=== PATIENT | female | born 1985 | race American Indian/Alaskan Native ===

== ENCOUNTER 2016-10-26 16:04 | Emergency (ER) | payer MEDICAID ==
--- NOTE | 2016-10-26 16:15 | Emergency Department Report ---
Stated Complaint: FALL INJURED R FOOT Time Seen by Provider: 10/26/16 16:13 - HPI History of Present Illness: PT c/o pain to R foot sp fall. - ROS Review of Systems: - head injury - loc - Exam Physical Exam: + edema noted to R lateral foot MSE screening note: Focused history and physical exam performed. Due to findings the following was ordered: xr ED Disposition for MSE Condition: Stable
[2016-10-26 16:17] VITALS: BP 104/63
--- NOTE | 2016-10-26 17:13 | XRay Report ---
RIGHT FOOT, 3 views: History: Right foot pain after fall. The bony architecture is intact. Bony alignment is normal. No soft tissue abnormalities are seen. The joint spaces appear preserved. IMPRESSION: Normal right foot.
--- NOTE | 2016-10-26 18:00 | Emergency Department Report ---
Entered by MANJINDER CARSON, acting as scribe for ROMY WILLIAMSON NP. ED Lower Extremity HPI - General Chief Complaint: Extremity Injury, Lower Stated Complaint: FALL INJURED R FOOT Time Seen by Provider: 10/26/16 16:13 Source: patient Mode of arrival: Wheelchair Limitations: No Limitations - History of Present Illness Initial Comments: 30 year old female with no significant PMHx presents to ED with c/o right foot pain since last night. Patient states it was a ground level fall while walking in the front yard when she fell in a ditch and twisted her right ankle. Patient reports swelling when she woke up this morning. Patient states she was non ambulatory and used a wheelchair in the ED. Patient denies LOC, head trauma/ injury, dizziness, nausea, vomiting, numbness, or tingling. NKDA. PRADO Complaint: foot injury -: Last night Injury: Foot: Right Place: street/outdoors Severity: moderate Improves With: nothing Worsens With: weight bearing, movement Context: fall Associated Symptoms: swelling, unable to bear weight. denies: snap/pop sensation, numbness, tingling, ambulatory (arrived in wheelchair) - Related Data Previous Rx's Medication Instructions Recorded Last Taken Type Ibuprofen [Motrin 800 MG tab] 800 mg PO Q8HR PRN #30 tablet 10/26/16 Unknown Rx ED Review of Systems Constitutional: denies: chills, fever, weakness Respiratory: denies: cough, shortness of breath, wheezing Cardiovascular: denies: chest pain, palpitations Gastrointestinal: denies: abdominal pain, nausea, vomiting, diarrhea Musculoskeletal: denies: back pain, joint swelling, arthralgia Skin: denies: rash, lesions Neurological: denies: headache, weakness, paresthesias ED Past Medical Hx - Past Medical History Previous Medical History?: No - Surgical History Past Surgical History?: Yes Additional Surgical History: LOWER ABD MASS REMOVED - Social History Smoking Status: Current Every Day Smoker Substance Use Type: None - Medications Home Medications: Home Medications Medication Instructions Recorded Confirmed Last Taken Type Ibuprofen [Motrin 800 MG tab] 800 mg PO Q8HR PRN #30 tablet 10/26/16 Unknown Rx ED Physical Exam - General Limitations: No Limitations General appearance: alert, in no apparent distress - Head Head exam: Present: atraumatic, normocephalic - Neck Neck exam: Present: normal inspection, full ROM. Absent: tenderness, meningismus - Respiratory Respiratory exam: Present: normal lung sounds bilaterally. Absent: respiratory distress, wheezes, rales, rhonchi, stridor - Cardiovascular Cardiovascular Exam: Present: regular rate, normal rhythm, normal heart sounds ( normal). Absent: systolic murmur, diastolic murmur, rubs, gallop - GI/Abdominal GI/Abdominal exam: Present: soft, normal bowel sounds. Absent: distended, tenderness, guarding, rebound, rigid, diminished bowel sounds - Extremities Exam Extremities exam: Present: tenderness, pedal edema - Expanded Lower Extremity Exam Right Hip exam: Present: pelvic stability Knee exam: Present: normal inspection, full ROM Lower Leg exam: Present: normal inspection, full ROM Ankle exam: Present: normal inspection, full ROM Foot/Toe exam: Present: tenderness (TTP to radial and dorsal ankle ), swelling ( Edema to radial and dorsal ankle ). Absent: abrasion, laceration, ecchymosis, deformity, crepidus, dislocation, erythema, amputation, puncture wound, foreign body, calcaneal tenderness, tenderness at base of 5th metatarsal, nail avulsion , subungual hematoma Neuro vascular tendon exam: Present: no vascular compromise (DP 2+ PT 2+). Absent: pulse deficit, abnormal cap refill, motor deficit, sensory deficit, tendon deficit, extremity cold to touch, pallor, abnormal 2-point discrimination , decreased fine/light touch, foot drop, peroneal nerve deficit, significant pain with passive ROM of distal joint Gait: Positive: unable to bear weight (to right foot) - Back Exam Back exam: Present: normal inspection, full ROM. Absent: tenderness, paraspinal tenderness, vertebral tenderness - Neurological Exam Neurological exam: Present: alert, oriented X3, CN II-XII intact, reflexes normal. Absent: motor sensory deficit - Psychiatric Psychiatric exam: Present: normal affect, normal mood - Skin Skin exam: Present: warm, dry, intact, normal color. Absent: rash ED Course Vital Signs 10/26/16 16:14 Temperature 98.3 F Pulse Rate 87 Respiratory 18 Rate Blood Pressure 104/63 O2 Sat by Pulse 98 Oximetry ED Lower Extremity MDM - Lab Data Vital Signs 10/26/16 16:14 Temperature 98.3 F Pulse Rate 87 Respiratory 18 Rate Blood Pressure 104/63 O2 Sat by Pulse 98 Oximetry - Radiology Data Radiology results: image reviewed RIGHT FOOT, 3 views: History: Right foot pain after fall. The bony architecture is intact. Bony alignment is normal. No soft tissue abnormalities are seen. The joint spaces appear preserved. IMPRESSION: Normal right foot. - Medical Decision Making During the course of ED, radiology study was ordered. The study revealed normal right foot. Patient was placed in a post-op shoe, sent home with prescription for Ibuprofen and crutches, instructed to follow up with the selective referral given discharge, she verbalized understanding - Differential Diagnosis Right Foot Pain, Right Foot Fracture ED Disposition Clinical Impression: Right foot pain Disposition: DC-01 TO HOME OR SELFCARE Is pt being admited?: No Does the pt Need Aspirin: No Condition: Stable Instructions: Arthralgia (ED) Additional Instructions: Take medication as directed. Wear post-op shoe for comfort. Follow up with the selective referral given at discharge. Prescriptions: Ibuprofen [Motrin 800 MG tab] 800 mg PO Q8HR PRN #30 tablet PRN Reason: Pain Referrals: PRIMARY CAREMD [Primary Care Provider] - 3-5 Days KEVIN PAREDES MD [Staff Physician] - 3-5 Days Time of Disposition: 17:59 This documentation as recorded by the YAMILETH florentino PEARL,accurately reflects the service I personally performed and the decisions made by CLAY lemus SABRENA D, PLANNING SPECIALIST.
== END 2016-10-26 18:05 | disposition home or self-care (01) ==
LOC: ED 16:04
DX: M79.671 Pain in right foot (principal); F17.200 Nicotine dependence, unspecified, uncomplicated; W18.30XA Fall on same level, unspecified, initial encounter; Y93.89 Activity, other specified; Y99.9 Unspecified external cause status; Y92.410 Unspecified street and highway as the place of occurrence of the external cause

== ENCOUNTER 2019-01-04 11:53 | Emergency (ER) | payer MEDICAID ==
[2019-01-04 12:20] VITALS: BP 104/68
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
--- NOTE | 2019-01-04 13:35 | XRay Report ---
XR spine lumbosacral 2-3V INDICATION / CLINICAL INFORMATION: back pain. COMPARISON: None available. FINDINGS: BONES/JOINT(S): No vertebral fracture. Normal alignment. No significant degenerative changes. No aggr essive appearing bone lesions. SOFT TISSUES: No significant abnormality. ADDITIONAL FINDINGS: None. Signer Name: Gordon Reyes MD Signed: 01/04/2019 1:31 PM Workstation Name: [id number]
--- NOTE | 2019-01-04 13:35 | XRay Report ---
XR spine thoracic 3V INDICATION / CLINICAL INFORMATION: back pain. COMPARISON: None available. FINDINGS: BONES/JOINT(S): No vertebral fracture. No significant degenerative changes. Normal alignment. No aggr essive appearing bone lesions or bone structure. SOFT TISSUES: No significant abnormality. ADDITIONAL FINDINGS: None. Signer Name: Gordon Reyes MD Signed: 01/04/2019 1:31 PM Workstation Name: [id number]
[2019-01-04] MEDS ORDERED: IBUPROFEN 800 MG TAB PO ONE (14:23)
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
== END 2019-01-04 14:45 | disposition home or self-care (01) ==
LOC: ED 11:53
DX: S39.012A Strain of muscle, fascia and tendon of lower back, initial encounter (principal); S29.012A Strain of muscle and tendon of back wall of thorax, initial encounter; Z79.1 Long term (current) use of non-steroidal anti-inflammatories (NSAID); Z79.899 Other long term (current) drug therapy; V89.2XXA Person injured in unspecified motor-vehicle accident, traffic, initial encounter; Y93.89 Activity, other specified; Y92.488 Other paved roadways as the place of occurrence of the external cause; Y99.8 Other external cause status
CPT/HCPCS: 72072; 72100; 99283